=== PATIENT | female | born 1940 | race Caucasian/White ===

== ENCOUNTER 2017-06-18 15:34 | Emergency (ER) | payer MEDICARE, OTHER ==
[~2017-06-18] VITALS: Ht 165.1 cm; Wt 72.6 kg
--- NOTE | 2017-06-18 15:50 | NUR ---
BBRA FAMILY FOR BLE LACERATIONS S/P FALL ON ESCALATOR. DENIES LOC
[2017-06-18] MEDS ORDERED: LIDOCAINE 1%-EPI 1:100,000 50 ML VIAL IJ ONE ×2 (16:37→17:00)
--- NOTE | 2017-06-18 17:46 | NUR ---
Patient discharged to home in stable condition. Written and verbal after care instructions given. Patient verbalizes understanding of instruction.
[2017-06-18 17:49] VITALS: BP 140/83
== END 2017-06-18 17:49 | disposition home or self-care (01) ==
LOC: ER 15:38
DX: S81.811A Laceration without foreign body, right lower leg, initial encounter (principal); S80.812A Abrasion, left lower leg, initial encounter; I10 Essential (primary) hypertension; M19.90 Unspecified osteoarthritis, unspecified site; Z96.641 Presence of right artificial hip joint; Z88.0 Allergy status to penicillin; W10.0XXA Fall (on)(from) escalator, initial encounter; Y93.89 Activity, other specified; Y92.89 Other specified places as the place of occurrence of the external cause; Y99.8 Other external cause status
CPT/HCPCS: 12002; 73590; 99284; A4606; J3490; Z7610

== ENCOUNTER 2017-06-28 15:43 | Emergency (ER) | payer MEDICARE, OTHER ==
[~2017-06-28] VITALS: Ht 167.6 cm; Wt 72.6 kg
[2017-06-28 15:50] VITALS: BP 138/87
== END 2017-06-28 16:33 | disposition home or self-care (01) ==
LOC: ER 15:47
DX: S81.811D Laceration without foreign body, right lower leg, subsequent encounter (principal); I10 Essential (primary) hypertension; M19.90 Unspecified osteoarthritis, unspecified site; Z88.0 Allergy status to penicillin
CPT/HCPCS: 99282; A4606; Z7610

== ENCOUNTER 2018-12-02 15:41 | Emergency (ER) | payer MEDICARE, OTHER ==
[~2018-12-02] VITALS: Ht 154.9 cm; Wt 60.8 kg
[2018-12-02 16:48] VITALS: BP 137/76
[2018-12-02] MEDS ORDERED: ACETAMINOPHEN ES 500 MG TABLET ONE (16:57)
[2018-12-02] MEDS ORDERED: TDAP [DIPH/PERTUSSIS/TET] 0.5 ML VIAL IM ONE ×2 (16:57→17:00)
[2018-12-02] MEDS ORDERED: ACETAMINOPHEN ES 500 MG TABLET PO ONE (17:00)
[2018-12-02] MEDS ORDERED: LIDOCAINE 1%-EPI 1:100,000 20 ML VIAL TP ONE (17:00)
--- NOTE | 2018-12-02 17:00 | NUR ---
PT AMBUALTED TO [facility]1 USING A CANE WITH A STEADY GAIT. PT IS AA&O X4. PT HAS A LAC ON HER LEFT HAND. PT REC'D A T-DAP IM IN THE RT DELTOID.
--- NOTE | 2018-12-02 17:05 | NUR ---
WOUND CARE IN PROGRESS.
[2018-12-02] MEDS ORDERED: LIDOCAINE 1%-EPI 1:100,000 20 ML VIAL ONE (17:16)
--- NOTE | 2018-12-02 17:54 | NUR ---
PT AMBULATED OUT WITH A STEADY GAIT USING A CANE. PT IS TAKING A LYFT HOME.
== END 2018-12-02 17:55 | disposition home or self-care (01) ==
LOC: ER 15:44
DX: S61.412A Laceration without foreign body of left hand, initial encounter (principal); Z88.0 Allergy status to penicillin; W55.03XA Scratched by cat, initial encounter; Y93.89 Activity, other specified; Y92.89 Other specified places as the place of occurrence of the external cause; Y99.8 Other external cause status
CPT/HCPCS: 90471; 90715; 99283; A6403; J3490

== ENCOUNTER 2021-09-04 20:36 | Inpatient (IN) | payer MEDICARE, OTHER ==
[~2021-09-04] VITALS: Ht 162.6 cm; Wt 67.6 kg
--- NOTE | 2021-09-04 20:46 | NUR ---
BIBRA 102 FROM HOME C/O AMS PAST FEW HOURS PT TESTED COVID + X 4 DAYS V/S CHECKED AND RECORDED HOOKED TO MONITOR SPOX PT IS A/O X2 A LITTLE AGITATED, NO SOB NOTED SPO2 98% ON ROOM AIR WILL CONT TO MONITOR
[2021-09-04] MEDS ORDERED: IV NS 0.9% 1,000 ML BAG IV ONE (21:00)
--- NOTE | 2021-09-04 21:05 | NUR ---
PT ON CT
[2021-09-04] MEDS ORDERED: LEVO75TA7 PO (21:10)
[2021-09-04] MEDS ORDERED: AMLO-213 PO (21:10)
[2021-09-04] MEDS ORDERED: LOSA100T31 PO (21:10)
[2021-09-04] MEDS ORDERED: ALEN70TA80 PO (21:10)
[2021-09-04] MEDS ORDERED: ATOR40TA PO (21:10)
[2021-09-04] MEDS ORDERED: DULO30CA2 PO (21:10)
[2021-09-04] MEDS ORDERED: QUET50TA PO (21:10)
[2021-09-04 21:17] LABS: BASOPHILS % (AUTO) 0.3 % (0.0-2.0); EOSINOPHILS % (AUTO) 0.1 % (0.0-6.0); HEMATOCRIT 36 % (33-45); HEMOGLOBIN 12.2 g/dL (11.5-14.8); LYMPHOCYTES # (AUTO) 1.4 K/uL (0.8-4.8); LYMPHOCYTES % (AUTO) 15.2 % (20.0-44.0); MEAN CORPUSCULAR HGB CONC 34 g/dl (31.0-36.0); MEAN CORPUSCULAR VOLUME 85 fL (82-100); MONOCYTES # (AUTO) 0.7 K/uL (0.1-1.30); MONOCYTES % (AUTO) 7.6 % (2.0-12.0); NEUTROPHILS # (AUTO) 6.8 K/uL (1.8-8.9); NEUTROPHILS % (AUTO) 76.8 % (43.0-81.0); PLATELET COUNT (AUTO) 244 K/uL (150-450); RED BLOOD CELL COUNT(AUTO) 4.24 MIL/uL (4.0-5.2); WHITE BLOOD COUNT (AUTO) 8.9 K/uL (4.3-11.0)
[2021-09-04 21:30] LABS: CALCIUM, SERUM 8.5 mg/dL (8.5-10.1); CARBON DIOXIDE 23 mmol/L (21-32); CHLORIDE 81 mmol/L (98-107); CREATININE 0.8 mg/dL (0.6-1.3); GLUCOSE 172 mg/dL (74-106); POTASSIUM 2.9 mmol/L (3.5-5.1); SERUM AMMONIA 9 umol/L (11-32); UREA NITROGEN, BLOOD 11 mg/dL (7-18)
[2021-09-04 21:36] LABS: SODIUM SERUM 116 mmol/L (136-145)
[2021-09-04 21:40] LABS: ALANINE AMINOTRANSFERASE 24 U/L (12-78); ALBUMIN 3.9 g/dL (3.4-5.0); ALKALINE PHOSPHATASE 90 U/L (46-116); ASPARTATE AMINOTRANSFERASE 24 U/L (15-37); BILIRUBIN,DIRECT 0.4 mg/dL (0.0-0.2); BILIRUBIN,TOTAL 1.2 mg/dL (0.2-1.0); TOTAL PROTEIN, SERUM 7.3 g/dL (6.4-8.2)
[2021-09-04 21:41] LABS: ALCOHOL, BLOOD < 3 mg/dL (0-0)
[2021-09-04] MEDS ORDERED: POTASSIUM CHLORIDE 20 MEQ TAB.PRT.SR PO ONE ×2 (22:30→22:38)
--- NOTE | 2021-09-04 22:57 | NUR ---
RFA #20g s/l; patent and intact
[2021-09-04] MEDS ORDERED: POTASSIUM CL. PREMIX PERIPHER. 50 ML ONE (22:59)
[2021-09-04] MEDS ORDERED: POTASSIUM CHLORIDE 10 MEQ/50 ML PREMIXED IVPB FOR PERIPHERAL LINE IV ONE (23:00)
--- NOTE | 2021-09-04 23:20 | NUR ---
HOSPITALIST MICHELLE NICHOLS BUSINESS ETHICS PROFESSOR AT BEDSIDE
[2021-09-04] MEDS ORDERED: ACETAMINOPHEN 325 MG TABLET PO PRN (23:30)
[2021-09-04] MEDS ORDERED: IV Sodium Chloride 3% 500 ML 500 ML IV ONE (23:30)
[2021-09-04] MEDS ORDERED: ONDANSETRON HCL/PF 4 MG/2 ML VIAL IVP PRN (23:30)
[2021-09-04] MEDS: NS 0.9% IV PRN (23:30)
[2021-09-04 23:45] LABS: BILIRUBIN,URINE NEGATIVE (NEGATIVE); COLOR,URINE YELLOW (YELLOW); LEUKOCYTE ESTERASE ,URINE NEGATIVE (NEGATIVE); NITRITE, URINE NEGATIVE (NEGATIVE); PH,URINE 6.5 (5.0-8.0); PROTEIN,URINE NEGATIVE (NEGATIVE); UGLUCOSE 100 MG/DL mg/dL (NEGATIVE); UROBILINOGEN,URINE 0.2 EU/dL (0.2)
[2021-09-04] MEDS ORDERED: ENOXAPARIN SODIUM 40 MG/0.4 ML DISP.SYRIN SQ SCH (23:48)
[2021-09-05] VITALS (16 sets, daily range): BP systolic 103–131; BP diastolic 41–68
--- NOTE | 2021-09-05 00:04 | NUR ---
UPDATED SON ENRIQUE [phone]
[2021-09-05 00:07] LABS: BACTERIA,URINE None seen /HPF (None Seen); RBC,URINE 0-2 /HPF (0-2); SQUAMOUS EPITHELIAL CELL,UR Few /HPF (None Seen); WBC,URINE 0-2 /HPF (0-3)
--- NOTE | 2021-09-05 00:10 | NUR ---
INSERTED F/C 16FR WITH YELLOW URINE OUTPUT; PATENT AND INTACT.
[2021-09-05] MEDS ORDERED: ENOXAPARIN SODIUM 40 MG/0.4 ML DISP.SYRIN SQ ONE (00:18)
--- NOTE | 2021-09-05 00:35 | NUR ---
LFA #18G S/L; PATENT AND INTACT
--- NOTE | 2021-09-05 00:39 | NUR ---
Kelsy melgoza in [place] - 09/05/21 at 0040 by MARY PT COVID ANTIGEN (+); NOTIFIED MARIAM KOHLI
--- NOTE | 2021-09-05 00:40 | NUR ---
PT COVID ANTIGEN (+); NOTIFIED TAMANNA KOHLI
[2021-09-05 02:11] LABS: CALCIUM, SERUM 7.8 mg/dL (8.5-10.1); CREATININE 0.7 mg/dL (0.6-1.3)
--- NOTE | 2021-09-05 04:53 | NUR ---
EMPTY LUU CATHETER WITH URINE OUTPUT OF 1800 ML
[2021-09-05] MEDS ORDERED: ONDANSETRON HCL/PF 4 MG/2 ML VIAL ONE (04:58)
[2021-09-05 05:07] LABS: BASOPHILS # (AUTO) 0.1 K/uL (0.0-0.2); BASOPHILS % (AUTO) 0.4 % (0.0-2.0); HEMATOCRIT 34 % (33-45); HEMOGLOBIN 11.4 g/dL (11.5-14.8); LYMPHOCYTES # (AUTO) 1.1 K/uL (0.8-4.8); LYMPHOCYTES % (AUTO) 8.8 % (20.0-44.0); MEAN CORPUSCULAR HGB CONC 34 g/dl (31.0-36.0); MEAN CORPUSCULAR VOLUME 84 fL (82-100); MONOCYTES # (AUTO) 0.9 K/uL (0.1-1.30); MONOCYTES % (AUTO) 6.9 % (2.0-12.0); NEUTROPHILS # (AUTO) 10.5 K/uL (1.8-8.9); NEUTROPHILS % (AUTO) 83.9 % (43.0-81.0); PLATELET COUNT (AUTO) 240 K/uL (150-450); RED BLOOD CELL COUNT(AUTO) 3.97 MIL/uL (4.0-5.2); WHITE BLOOD COUNT (AUTO) 12.5 K/uL (4.3-11.0)
[2021-09-05 05:22] LABS: CALCIUM, SERUM 7.8 mg/dL (8.5-10.1); CREATININE 0.7 mg/dL (0.6-1.3); MAGNESIUM 1.6 mg/dL (1.8-2.4); PHOSPHORUS 2.8 mg/dL (2.5-4.9)
--- NOTE | 2021-09-05 05:39 | NUR ---
REPORTED TO HOSPITALIST MICHELLE NICHOLS LEDGER CLERK THAT SODIUM LVL IS 117 WITH ORDER TO INCREASE THE RATE OF IVF 3% SODIUM CHLORIDE TO 25ML/HR NOTED AND CARRIED OUT
[2021-09-05] MEDS ORDERED: PANTOPRAZOLE 40 MG VIAL ONE (05:58)
[2021-09-05] MEDS ORDERED: IV Sodium Chloride 3% 500 ML 500 ML IV ONE (06:00)
[2021-09-05] MEDS: PANTOPRAZOLE 40 MG VIAL IV SCH ×3 (06:02→20:26)
--- NOTE | 2021-09-05 06:54 | NUR ---
ICU 256
[2021-09-05] MEDS ORDERED: LEVOTHYROXINE SODIUM 75 MCG TABLET PO SCH (07:00)
[2021-09-05] MEDS: LEVOTHYROXINE SODIUM 75 MCG TABLET PO SCH (07:36)
[2021-09-05] MEDS ORDERED: LEVOTHYROXINE SODIUM 25 MCG TABLET ONE (07:49)
[2021-09-05] MEDS ORDERED: LEVOTHYROXINE SODIUM 50 MCG TABLET ONE (07:49)
--- NOTE | 2021-09-05 08:03 | NUR ---
REPORT GIVEN TO GUY FOR CRISTAL
--- NOTE | 2021-09-05 08:41 | NUR ---
TRANSPORTED PATIENT TO ROOM USING ACLS PROTOCOL
[2021-09-05] MEDS: AMLODIPINE BESYLATE 10 MG TABLET PO SCH (09:18)
[2021-09-05] MEDS: LOSARTAN POTASSIUM 50 MG TABLET PO SCH (09:18)
[2021-09-05] MEDS: ATORVASTATIN 40 MG TABLET PO SCH (09:18)
[2021-09-05] MEDS: POTASSIUM CHLORIDE 20 MEQ TAB.PRT.SR PO SCH ×2 (09:23→10:31)
[2021-09-05] MEDS: Magnesium 1GM/D5W 100ML PREMIX 100 ML IV SCH ×2 (09:23→10:31)
[2021-09-05 12:16] LABS: CREATININE 0.6 mg/dL (0.6-1.3); POTASSIUM 3.4 mmol/L (3.5-5.1)
--- NOTE | 2021-09-05 18:42 | NUR ---
RN NOTES; PT IN BED IN SUPINE POS RESTING. PT A/OX3, NO SOB OR DISTRESS NOTED, NO C/O PAIN AT THIS TIME. PT ON RA, SATING AT 94-98*. LFA PATENT RUNNING 3% NS 500 @25ML/HR. WAITING FOR BMP RESULTS. PER DR. MCKEON IF NA >25 D/C 3% NS 500 AND CHANGE TO NS 1000 @ 75ML/HR. WILL ENDORSE TO SENIOR DATA DEVELOPER RN. ALL MEDICATIONS GIVEN AND TOLERATED WELL. PT KEPT CLEAN, DRY AND COMFORTABLE. ALL SAFETY MEASURES RENDERED, BED LOCKED, IN LOWEST POS. SIDE RAILSX3 WITH CALL LIGHT WITHIN REACH. NO SIGNIFICANT CHANGES TO PT HEALTH STATUS DURING SHIFT. WILL ENDORSE TO SENIOR DATA DEVELOPER RN. PT IN STABLE CONDITION.
--- NOTE | 2021-09-05 19:10 | NUR ---
RN NOTE RECEIVED PATIENT IN BED, AO X 4, IN NO S/SX OF ACUTE DISTRESS AT THIS TIME. BREATHING EVEN AND UNLABORED, SATURATION AT 96% ON ROOM AIR, SR ON THE MONITOR, HR IS 75. NOTED IV SITE AT LFA 18G, PATENT AND FLUSHING WELL, NO S/S OF INFECTION OR INFILTRATION WITH 3% NS INFUSING AT 25 ML/HR. LUU CATHETER IN PLACE, DRAINING TO A CLEAR, YELLOW OUTPUT. SAFETY MEASURES IMPLEMENTED. PATIENT BED ALARM IS ON. HEAD OF BED ELEVATED. BED IS LOCKED, IN LOWEST POSITION AND SIDE RAILS UP. CALL LIGHT WITHIN REACH OF THE PATIENT. WILL CONTINUE TO MONITOR AND REASSESS FOR ANY CHANGES.
[2021-09-05 19:15] LABS: CALCIUM, SERUM 8.5 mg/dL (8.5-10.1); CREATININE 0.7 mg/dL (0.6-1.3); POTASSIUM 3.5 mmol/L (3.5-5.1)
[2021-09-05] MEDS: NS 0.9% IV PRN ×2 (19:23→19:45)
--- NOTE | 2021-09-05 19:40 | NUR ---
RN NOTE NOTED LATEST SODIUM LEVEL AT 1796=727 mmol/L, DR NICHOLS WAS NOTIFIED, ORDER RECEIVED TO DC 3% NaCl, AND CHANGE IV FLUID TO NS AT 75 ML/HR. DIRECTOR OPERATIONSBECKY DE LEON
[2021-09-06] VITALS (15 sets, daily range): BP systolic 107–141; BP diastolic 54–72
[2021-09-06 04:48] LABS: BASOPHILS % (AUTO) 0.1 % (0.0-2.0); EOSINOPHILS % (AUTO) 0.1 % (0.0-6.0); HEMATOCRIT 30 % (33-45); HEMOGLOBIN 10.3 g/dL (11.5-14.8); LYMPHOCYTES # (AUTO) 1.8 K/uL (0.8-4.8); LYMPHOCYTES % (AUTO) 16.1 % (20.0-44.0); MEAN CORPUSCULAR HGB CONC 34 g/dl (31.0-36.0); MEAN CORPUSCULAR VOLUME 86 fL (82-100); MONOCYTES # (AUTO) 1.6 K/uL (0.1-1.30); NEUTROPHILS # (AUTO) 7.8 K/uL (1.8-8.9); NEUTROPHILS % (AUTO) 69.7 % (43.0-81.0); PLATELET COUNT (AUTO) 247 K/uL (150-450); RED BLOOD CELL COUNT(AUTO) 3.52 MIL/uL (4.0-5.2); WHITE BLOOD COUNT (AUTO) 11.2 K/uL (4.3-11.0)
[2021-09-06 04:55] LABS: CARBON DIOXIDE 24 mmol/L (21-32); CHLORIDE 111 mmol/L (98-107); CREATININE 0.7 mg/dL (0.6-1.3); GLUCOSE 115 mg/dL (74-106); MAGNESIUM 2.2 mg/dL (1.8-2.4); PHOSPHORUS 2.3 mg/dL (2.5-4.9); POTASSIUM 3.5 mmol/L (3.5-5.1); SODIUM SERUM 143 mmol/L (136-145); UREA NITROGEN, BLOOD 17 mg/dL (7-18)
[2021-09-06] MEDS ORDERED: IV D5W 500 ML IV ONE (06:30)
--- NOTE | 2021-09-06 07:25 | NUR ---
RN NOTE REPORT GIVEN TO ARIES RN FOR CONTINUATION OF CARE
[2021-09-06] MEDS ORDERED: POTASSIUM PHOSPHATE MM 15 MMOL in IV NS 0.9% 250 ML IV SCH (07:30)
--- NOTE | 2021-09-06 07:30 | NUR ---
MACHINE SPLITTER OPENING NOTES Patient is alert and oriented. Breathing even and unlabored on room air. HOB kept elevated. Gaffney cath intact and hanging to gravity with clear yellow urine. Will continue to monitor. On precautions for covid.
[2021-09-06] MEDS: POTASSIUM PHOSPHATE MM 7.5 MMOL in IV NS 0.9% 100 ML IV SCH ×2 (08:37→11:51)
[2021-09-06] MEDS: AMLODIPINE BESYLATE 10 MG TABLET PO SCH (08:38)
[2021-09-06] MEDS: ATORVASTATIN 40 MG TABLET PO SCH (08:38)
[2021-09-06] MEDS: LOSARTAN POTASSIUM 50 MG TABLET PO SCH (08:38)
[2021-09-06] MEDS: LEVOTHYROXINE SODIUM 75 MCG TABLET PO SCH (08:38)
[2021-09-06] MEDS: PANTOPRAZOLE 40 MG VIAL IV SCH ×2 (08:41→20:46)
--- NOTE | 2021-09-06 11:10 | NUR ---
Patient transferred to AK/2 205. Patient is alert and oriented. Breathing even and unlabored. No c/o pain or discomfort. On room air. Report given to
--- NOTE | 2021-09-06 11:15 | NUR ---
RN NOTES RECEIVED PATIENT FROM ICU VIA BED, PATIENT IS AWAKE, ALERT AND ORIENTED X 4, ABLE TO MAKE NEEDS KNOWN. IV ACCESS ON LFA G#18 NOTED, PATENT AND FLUSHES WELL. ON ROOM AIR TOLERATING WELL, NO S/SX OF ACUTE DISTRESS NOTED. WITH FC CONNECTED TO URINE BAG DRAINING CLEAR YELLOW COLORED URINE. SAFETY PRECAUTIONS IN PLACE, BED ON LOWEST LOCKED POSITION, SIDE RAILS UP X 2, CALL LIGHT WITHIN EASY REACH. WILL CONTINUE TO MONITOR ACCORDINGLY.
--- NOTE | 2021-09-06 13:16 | NUR ---
RN NOTES PATIENT HAD AN EPISODE OF BIGEMINY RUN FOR GOOD 2 MINS. CURRENTLY SR WITH NON CONDUCTING PAC'S HR AT 77. NO OTHER SYMPTOMS NOTED. DR. XIE MADE AWARE.
--- NOTE | 2021-09-06 19:00 | NUR ---
RN CLOSING NOTES PATIENT IN BED, AWAKE, ALERT AND ORIENTED X 4, ABLE TO MAKE NEEDS KNOWN. IV ACCESS ON LFA G#18 NOTED, PATENT AND FLUSHES WELL. ON ROOM AIR TOLERATING WELL, NO S/SX OF ACUTE DISTRESS NOTED. WITH FC CONNECTED TO URINE BAG DRAINING CLEAR YELLOW COLORED URINE. SAFETY PRECAUTIONS IN PLACE, BED ON LOWEST LOCKED POSITION, SIDE RAILS UP X 2, CALL LIGHT WITHIN EASY REACH. ALL NEEDS ATTENDED AN DMET, DUE MEDS GIVEN ORDERED. WILL ENDORSE TO ONCOMING SHIFT FOR CRISTAL.
--- NOTE | 2021-09-06 19:45 | NUR ---
TRUST MANAGER ASSISTANT NOTES RECEIVED ON BED A/O X4,BREATHING NON LABORED,SALINE LFA INTACT AND PATENT,DROPLET ISOLATION DUE COVID RAPID POSITIVE.ABLE TO VERNALIZED NEEDS,CALL LIGHT IN REACH,NEEDS ANTICIPATED.
--- NOTE | 2021-09-06 19:45 | NUR ---
DRIVER STARTING GATE NOTES LUU CATH IN PLACE DRAINING CLEAR YELLOW URINE OUTPUT.
[2021-09-07] VITALS: BP 134/64
[2021-09-07 04:00] VITALS: BP 130/61
--- NOTE | 2021-09-07 06:34 | NUR ---
SWITCH MAKER NOTES SLEPT WITH INTERVAL, ALL DUE MEDS GIVEN,NO COMPLAINTS THRU SHIFT,CALL LIGHT IN REACH,NEEDS ATTENDED.
--- NOTE | 2021-09-07 07:30 | NUR ---
MOUNTER CLARINETS OPENING NOTES RECEIVED PATIENT ON BED AWAKE AND A/O X4. ON ROOM AIR TOLERATING WELL. NO SOB NOTED. NOT IN DISTRESS. ON DROPLET PRECAUTION DUE TO PATIENT IS COVID POSITIVE. WITH NO COMPLAINTS OF PAIN OR DISCOMFORT AT THIS TIME. WITH IV ACCESS AT LEFT FOREARM G18, SALINE LOCKED, PATENT AND INTACT. SAFETY MEASURES IN PLACED. CALL LIGHT WITHIN REACH. BED ON LOWEST LOCKED POSITION, SIDE RAILS UP X2. WILL CONTINUE TO MONITOR.
--- NOTE | 2021-09-07 07:30 | NUR ---
RN NOTE ON TELE MONITOR CURRENTLY READING SINUS RHYTHM AT 64BPM.
[2021-09-07 08:00] VITALS: BP 136/76
[2021-09-07 08:25] LABS: BASOPHILS % (AUTO) 0.5 % (0.0-2.0); EOSINOPHILS % (AUTO) 1.5 % (0.0-6.0); HEMATOCRIT 32 % (33-45); HEMOGLOBIN 11.1 g/dL (11.5-14.8); LYMPHOCYTES # (AUTO) 1.9 K/uL (0.8-4.8); MEAN CORPUSCULAR HGB CONC 34 g/dl (31.0-36.0); MEAN CORPUSCULAR VOLUME 86 fL (82-100); MONOCYTES % (AUTO) 12.1 % (2.0-12.0); NEUTROPHILS # (AUTO) 5.3 K/uL (1.8-8.9); NEUTROPHILS % (AUTO) 62.9 % (43.0-81.0); PLATELET COUNT (AUTO) 246 K/uL (150-450); RED BLOOD CELL COUNT(AUTO) 3.74 MIL/uL (4.0-5.2); WHITE BLOOD COUNT (AUTO) 8.4 K/uL (4.3-11.0)
[2021-09-07 08:43] LABS: CALCIUM, SERUM 7.9 mg/dL (8.5-10.1); CREATININE 0.6 mg/dL (0.6-1.3); PHOSPHORUS 2.4 mg/dL (2.5-4.9)
[2021-09-07] MEDS: LEVOTHYROXINE SODIUM 75 MCG TABLET PO SCH (09:44)
[2021-09-07] MEDS: LOSARTAN POTASSIUM 50 MG TABLET PO SCH (09:44)
[2021-09-07] MEDS: ATORVASTATIN 40 MG TABLET PO SCH (09:44)
[2021-09-07] MEDS: AMLODIPINE BESYLATE 10 MG TABLET PO SCH (09:44)
[2021-09-07] MEDS: PANTOPRAZOLE 40 MG VIAL IV SCH (09:45)
[2021-09-07 12:00] VITALS: BP 123/65
[2021-09-07] MEDS: POTASSIUM CHLORIDE 20 MEQ TAB.PRT.SR PO SCH ×3 (12:53→15:01)
[2021-09-07] MEDS ORDERED: NEUTRA PHOS 1 POWD.PACKET PO ONE (13:00)
--- NOTE | 2021-09-07 16:50 | NUR ---
FUEL CELL SYSTEMS ENGINEER CLOSING NOTES PATIENT WAS SEEN BY DR. XIE AND ORDERED PATIENT FOR DISCHARGE TO HOME. DISCHARGE INSTRUCTION AND EDUCATION PROVIDED TO PATIENT AND EXPLAINED MEDICATIONS AND PRESCRIPTIONS. PATIENT VERBALIZED UNDERSTANDING. DISCHARGE FORM AND BELONGINGS LIST FORM SIGNED BY PATIENT. ALL BELONGINGS ACCOUNTED FOR. NAME WRIST BAND AND IV LINE REMOVED. ACCOMPANIED PATIENT TO THE LOBBY VIA WHEELCHAIR IN STABLE CONDITION AND WAS PICKED UP BY SON VIA PRIVATE CAR. MD AND CHARGE NURSE ARE AWARE OF THE DISCHARGE.
== END 2021-09-07 16:15 | disposition home or self-care (01) | DRG 177 ==
LOC: ER 20:45 → TRANSITION 23:39 → ICU 09-05 07:18 → TELE2 09-06 11:10
PROVIDERS: ADMIT Nurse Practitioner Acute Care; ATTEND Internal Medicine
DX: U07.1 COVID-19 (principal); G93.41 Metabolic encephalopathy; E87.1 Hypo-osmolality and hyponatremia; R47.01 Aphasia; K92.0 Hematemesis; E86.1 Hypovolemia; I10 Essential (primary) hypertension; Z88.0 Allergy status to penicillin; Z79.83 Long term (current) use of bisphosphonates; Z79.899 Other long term (current) drug therapy; E03.9 Hypothyroidism, unspecified; E11.65 Type 2 diabetes mellitus with hyperglycemia; E78.5 Hyperlipidemia, unspecified; F41.9 Anxiety disorder, unspecified; E83.42 Hypomagnesemia; E87.6 Hypokalemia; M10.9 Gout, unspecified; Z79.890 Hormone replacement therapy; D32.9 Benign neoplasm of meninges, unspecified
CPT/HCPCS: 36415; 70450-TC; 71045-TC; 80048-TC; 80061-TC; 80076-TC; 81001; 82140-TC; 82962-TC; 83735-TC; 84100-TC; 84300-TC; 84443-TC; 84484-TC; 85025-TC; 85730-TC; 87081-TC; 97116-TC; 97530-TC; C9113; G0378; G0480; J1650; J2405; J3475; J3480; J3490; J7030; J7040; J7050; J7060

== ENCOUNTER 2022-07-13 14:22 | Inpatient (IN) | payer MEDICARE, OTHER ==
[~2022-07-13] VITALS: Ht 205.7 cm; Wt 79.8 kg
[~2022-07-13 14:22] MED LIST: ALEN70TA80 PO; AMLO-213 PO; ATOR40TA PO; DULO30CA2 PO; LEVO75TA7 PO; LOSA100T31 PO; QUET50TA PO
[2022-07-13] MEDS ORDERED: IV NS 0.9% 1,000 ML BAG IV ONE ×2 (14:30→16:00)
--- NOTE | 2022-07-13 14:41 | NUR ---
COVID TEST COLLECTED AND SENT
--- NOTE | 2022-07-13 14:45 | NUR ---
To ER bed 1, JESSICA TALBERT881 "From Home son noticed was slow to respond since yesterday worse today- inconrinent of urine", aaox3, breathing even and non labored, connected to monitor, awaiting md sanchez
[2022-07-13] MEDS ORDERED: RISP1TAB97 PO (15:01)
[2022-07-13] MEDS ORDERED: ROSU40TA23 PO (15:01)
[2022-07-13 15:14] LABS: BASOPHILS % (AUTO) 0.3 % (0.0-2.0); EOSINOPHILS % (AUTO) 0.1 % (0.0-6.0); HEMATOCRIT 37 % (33-45); MEAN CORPUSCULAR HGB CONC 33 g/dl (31.0-36.0); MEAN CORPUSCULAR VOLUME 81 fL (82-100); MONOCYTES # (AUTO) 1.8 K/uL (0.1-1.30); MONOCYTES % (AUTO) 13.5 % (2.0-12.0); NEUTROPHILS # (AUTO) 9.3 K/uL (1.8-8.9); NEUTROPHILS % (AUTO) 71.1 % (43.0-81.0); PLATELET COUNT (AUTO) 295 K/uL (150-450); RED BLOOD CELL COUNT(AUTO) 4.55 MIL/uL (4.0-5.2); WHITE BLOOD COUNT (AUTO) 13.2 K/uL (4.3-11.0)
[2022-07-13 15:22] LABS: CALCIUM, SERUM 9.2 mg/dL (8.5-10.1); CARBON DIOXIDE 26 mmol/L (21-32); CHLORIDE 98 mmol/L (98-107); CREATININE 0.9 mg/dL (0.6-1.3); GLUCOSE 126 mg/dL (74-106); POTASSIUM 4.4 mmol/L (3.5-5.1); SODIUM SERUM 131 mmol/L (136-145); UREA NITROGEN, BLOOD 13 mg/dL (7-18)
[2022-07-13 15:28] LABS: ALANINE AMINOTRANSFERASE 93 U/L (12-78); ALBUMIN 3.4 g/dL (3.4-5.0); ALKALINE PHOSPHATASE 63 U/L (46-116); ASPARTATE AMINOTRANSFERASE 287 U/L (15-37); BILIRUBIN,DIRECT 0.1 mg/dL (0.0-0.2); BILIRUBIN,TOTAL 0.5 mg/dL (0.2-1.0); TOTAL PROTEIN, SERUM 6.8 g/dL (6.4-8.2)
[2022-07-13 15:47] LABS: BILIRUBIN,URINE NEGATIVE (NEGATIVE); COLOR,URINE YELLOW (YELLOW); LEUKOCYTE ESTERASE ,URINE 2+ (NEGATIVE); NITRITE, URINE NEGATIVE (NEGATIVE); PH,URINE 6.5 (5.0-8.0); PROTEIN,URINE NEGATIVE (NEGATIVE); UGLUCOSE NEGATIVE (NEGATIVE); UROBILINOGEN,URINE 0.2 EU/dL (0.2)
[2022-07-13] MEDS ORDERED: VANCOMYCIN 1 GM in IV D5W 250 ML IV ONE (16:00)
[2022-07-13] MEDS ORDERED: CEFEPIME 1 GM in IV D5W 50 ML IV ONE (16:00)
[2022-07-13 16:01] LABS: BACTERIA,URINE 2+ /HPF (None Seen); RBC,URINE 21-50 /HPF (0-2); URINE AMORPHOUS URATE Many /HPF (None Seen)
--- NOTE | 2022-07-13 20:08 | NUR ---
RECEIVED PT IS ER ROOM 1. PT IS ALERT AND DENIES ANY DISCOMFORT AT THIS TIME. CONNECTED TO POX AND HEART MONITOR. VITAL SIGNS WITHIN LIMITS. FAMILY AT BEDSIDE. WILL CONTINUE TO MONITOR
--- NOTE | 2022-07-13 20:56 | NUR ---
TELE 312-2
--- NOTE | 2022-07-13 21:06 | NUR ---
report given to Cecilia PENA to continue care.
[2022-07-13 21:53] VITALS: BP 106/55
--- NOTE | 2022-07-13 21:58 | NUR ---
PATIENT TRANSFERRED TO [facility]
[2022-07-13] MEDS ORDERED: Z GUARD REMEDY 4 OZ OINT TP PRN (22:00)
[2022-07-13] MEDS ORDERED: ACETAMINOPHEN 325 MG TABLET PO PRN (22:00)
[2022-07-13] MEDS ORDERED: ONDANSETRON HCL/PF 4 MG/2 ML VIAL IVP PRN (22:00)
[2022-07-13] MEDS ORDERED: ENOXAPARIN SODIUM 80 MG/0.8 ML DISP.SYRIN SQ ONE (22:30)
--- NOTE | 2022-07-13 22:30 | NUR ---
MEDICAL SUPPLY TECHNICIANEDUCATION SPECIALIST NOTE PATIENT ARRIVED FROM ER, PATIENT ALERT/ORIENTED TO NAME AND PLACE, ORIENTED PATIENT TO DATE AND TIME. PATIENT STABLE ON RA, NO S/S OF DISTRESS OR SOB NOTED, BREATHING EVEN AND UNLABORED. EXTERNAL RIVETING MACHINE OPERATOR PLACED ON PATIENT, READING SINUS RHYTHM, HR: 63. IV ACCESS ON RAC #20G INTACT AND FLUSHING WELL. PATIENT FULLY VACCINATED FOR COVID WITH BOOSTERS X 3, VACCINATED FOR FLU IN MAY, UNSURE IF RECEIVED PNA VACCINE. PATIENT STATES SHE LIVES WITH SON, USES WALKER FOR AMBULATION BUT HASN'T BEEN ABLE TO WALK RECENTLY D/T WEAKNESS, PT EVAL ORDERED. WOUND CONSULT ORDERED FOR RIGHT ARM SKIN TEARS, PT ALSO HAS LEFT ARM BRUISING AND RIGHT LEG SCAB. PATIENT HAS BILATERAL LOWER EXTREMITY PITTING EDEMA +3. PATIENT BELONGINGS DOCUMENTED, PATIENT REQUESTED TO PUT ANTONIO ($117) AND DEBIT IN [facility]. PATIENT STATES SHE IS VEGAN. ORIENTED PATIENT TO ROOM AND HOW TO USE CALL LIGHT. SAFETY MEASURES IN PLACE: CALL LIGHT WITHIN REACH, SIDE RAILS UP X 2, BED LOCKED IN LOWEST POSITIONS, BED ALARM ON. WILL CONTINUE TO MONITOR PATIENT
[2022-07-13] MEDS ORDERED: CEFTRIAXONE 1 G VIAL ONE (23:17)
[2022-07-13] MEDS: CEFTRIAXONE 1 G in IV D5W 50 ML IV SCH (23:21)
[2022-07-13] MEDS: ATORVASTATIN 40 MG TABLET PO SCH (23:22)
[2022-07-13] MEDS: PANTOPRAZOLE 40 MG TABLET.DR PO SCH (23:22)
[2022-07-13] MEDS: risperiDONE 1 MG TABLET PO SCH (23:22)
[2022-07-13] MEDS: IV NS 0.9% 1,000 ML IV PRN (23:22)
[2022-07-14] VITALS: BP 109/61
[2022-07-14] MEDS ORDERED: ASPIRIN 81 MG TAB.CHEW PO STA (00:03)
[2022-07-14 05:00] VITALS: BP 106/57
[2022-07-14 06:19] LABS: BASOPHILS # (AUTO) 0.1 K/uL (0.0-0.2); BASOPHILS % (AUTO) 0.7 % (0.0-2.0); EOSINOPHILS % (AUTO) 1.9 % (0.0-6.0); HEMATOCRIT 32 % (33-45); HEMOGLOBIN 10.7 g/dL (11.5-14.8); LYMPHOCYTES # (AUTO) 2.4 K/uL (0.8-4.8); LYMPHOCYTES % (AUTO) 31.8 % (20.0-44.0); MEAN CORPUSCULAR HGB CONC 34 g/dl (31.0-36.0); MEAN CORPUSCULAR VOLUME 82 fL (82-100); MONOCYTES % (AUTO) 13.4 % (2.0-12.0); NEUTROPHILS % (AUTO) 52.2 % (43.0-81.0); PLATELET COUNT (AUTO) 260 K/uL (150-450); RED BLOOD CELL COUNT(AUTO) 3.92 MIL/uL (4.0-5.2); WHITE BLOOD COUNT (AUTO) 7.7 K/uL (4.3-11.0)
[2022-07-14 06:32] LABS: CALCIUM, SERUM 8.1 mg/dL (8.5-10.1); CARBON DIOXIDE 25 mmol/L (21-32); CHLORIDE 109 mmol/L (98-107); CREATININE 0.5 mg/dL (0.6-1.3); GLUCOSE 79 mg/dL (74-106); MAGNESIUM 2.2 mg/dL (1.8-2.4); PHOSPHORUS 3.2 mg/dL (2.5-4.9); POTASSIUM 3.8 mmol/L (3.5-5.1); SODIUM SERUM 140 mmol/L (136-145); UREA NITROGEN, BLOOD 8 mg/dL (7-18)
--- NOTE | 2022-07-14 07:03 | NUR ---
TORQUE TESTER CLOSING NOTE PATIENT AWAKE IN BED, ALERT/ORIENTED X 2-3. PT STABLE ON RA, NO S/S OF DISTRESS OR SOB NOTED, BREATHING EVEN AND UNLABORED. PATIENT ON EXTERNAL WEB OFFSET PRESS FEEDER READING SINUS ANTONIO TO SINUS RHYTHM, HR: 64 AT THIS TIME. PATIENT DENIED CHEST PAIN ALL SHIFT. IV ACCESS ON RAC #20G INTACT AND INFUSING NS @ 75 ML/HR. MEDICATIONS GIVEN ORDERED, PT NEEDS MET THROUGHOUT SHIFT. PATIENT'S ANTONIO AND DEBIT CARD TAKEN DOWN TO NURSING COTTRELL OPERATOR [facility] PER PATIENT REQUEST. SAFETY MEASURES IN PLACE: CALL LIGHT WITHIN REACH, SIDE RAILS UP X 2, BED LOCKED IN LOWEST POSITION, BED ALARM ON. WILL ENDORSE TO DAYSHIFT NURSE FOR CONTINUITY OF CARE
[2022-07-14 07:13] LABS: CHOLESTEROL 91 mg/dL (<200); HDL CHOLESTEROL 64 mg/dL (40-60); LDL 20 mg/dL (0-99); TRIGLYCERIDES 34 mg/dL (30-150)
--- NOTE | 2022-07-14 07:30 | NUR ---
TELE OPENING NOTES RECEIVED PATIENT AWAKE IN BED. PATIENT IS ALERT AND ORIENTED TIMES 3. NO PAIN NOTED. NO SOB NOTED. NO DISTRESS NOTED. IV ACCESS ON THE RIGHT ARM G # 20 INTACT RUNNING NS AT 75 ML/HR. ON TELE MONITOR READING SR. ALL NEEDS ATTENDED. ALL SAFETY MEASURES IN PLACE. BED LOCKED IN THE LOWEST POSITION. CALL LIGHT AND TABLE IN EASY REACH. WILL CONTINUE TO MONITOR.
[2022-07-14] MEDS: PANTOPRAZOLE 40 MG TABLET.DR PO SCH (07:55)
[2022-07-14] MEDS: LEVOTHYROXINE SODIUM 75 MCG TABLET PO SCH (07:55)
[2022-07-14 08:00] VITALS: BP 101/47
[2022-07-14] MEDS: AMLODIPINE BESYLATE 10 MG TABLET PO SCH (09:00)
[2022-07-14] MEDS: LOSARTAN POTASSIUM 50 MG TABLET PO SCH (09:00)
[2022-07-14] MEDS: DULOXETINE HCL 30 MG CAPSULE.DR PO SCH (09:54)
[2022-07-14] MEDS: ASPIRIN EC 81 MG TABLET.DR PO SCH (09:55)
[2022-07-14] MEDS: ENOXAPARIN SODIUM 80 MG/0.8 ML DISP.SYRIN SQ SCH ×2 (10:06→21:06)
[2022-07-14 12:00] VITALS: BP 106/58
--- NOTE | 2022-07-14 12:00 | NUR ---
RN NOTES. THE BELONGING OF ANTONIO 117 $ AND DEBIT CARD IS TAKEN HOME BY SON ENRIQUE. ENRIQUE SIGNED THE BELONGINGS PAPER FOR THOSE 2 ITEMS . I GOT THE MONEY AND DEBIT CARD FROM [employer] FROM [employer].
[2022-07-14 16:00] VITALS: BP 106/63
--- NOTE | 2022-07-14 19:00 | NUR ---
RN CLOSING NOTES PATIENT AWAKE IN BED. PATIENT IS ALERT AND ORIENTED TIMES 3. NO PAIN NOTED. NO SOB NOTED. NO DISTRESS NOTED. IV ACCESS ON THE RIGHT ARM G # 20 INTACT RUNNING NS AT 75 ML/HR. DUE MEDS GIVEN ORDERED.ON TELE MONITOR READING SR. ALL NEEDS ATTENDED. ALL SAFETY MEASURES IN PLACE. BED LOCKED IN THE LOWEST POSITION. CALL LIGHT AND TABLE IN EASY REACH. WILL ENDORSE FOR CRISTAL.
--- NOTE | 2022-07-14 19:42 | NUR ---
noc rn opening note received patient in bed a/ox3-4. no s/s of apparent distress on room air. denies any pain. tele monitor reading sr with 71 bpm. r. ac #20g running ns @75mls/hr. re-oriented and encouraged with the use of call light, call light within reach. safety in place. will continue with plan of care for patient.
[2022-07-14 20:00] VITALS: BP 121/68
[2022-07-14] MEDS: risperiDONE 1 MG TABLET PO SCH (21:23)
[2022-07-14] MEDS: ATORVASTATIN 40 MG TABLET PO SCH (21:23)
[2022-07-14] MEDS: CEFTRIAXONE 1 G in IV D5W 50 ML IV SCH (21:28)
[2022-07-15] VITALS: BP 111/60
[2022-07-15] MEDS: IV NS 0.9% 1,000 ML IV PRN (01:21)
[2022-07-15 04:00] VITALS: BP 125/58
[2022-07-15] MEDS: LEVOTHYROXINE SODIUM 75 MCG TABLET PO SCH (07:07)
[2022-07-15] MEDS: PANTOPRAZOLE 40 MG TABLET.DR PO SCH (07:07)
--- NOTE | 2022-07-15 07:30 | NUR ---
MULTIPLE SCLEROSIS NURSE NOTES PT IN BED, AWAKE, ALERT AND ORIENTED, DENIES PAIN, RESPIRATIONS NORMAL, CALL LIGHT WITHIN REACH, IV FLUIDS INFUSING WELL, NEEDS ATTENDED.
--- NOTE | 2022-07-15 07:37 | NUR ---
noc rn closing needs attended. report given to jeffery Benjamin for continuity of patient care.
[2022-07-15 08:00] VITALS: BP 124/63
[2022-07-15] MEDS: ASPIRIN EC 81 MG TABLET.DR PO SCH (09:08)
[2022-07-15] MEDS: DULOXETINE HCL 30 MG CAPSULE.DR PO SCH (09:10)
[2022-07-15] MEDS: AMLODIPINE BESYLATE 10 MG TABLET PO SCH (09:10)
[2022-07-15] MEDS: LOSARTAN POTASSIUM 50 MG TABLET PO SCH (09:10)
[2022-07-15] MEDS: ENOXAPARIN SODIUM 80 MG/0.8 ML DISP.SYRIN SQ SCH ×2 (09:30→21:35)
[2022-07-15 12:22] VITALS: BP 118/71
--- NOTE | 2022-07-15 12:46 | NUR ---
WOUND CARE CONSULT: PT DENIES NEED FOR FULL SKIN ASSESSMENT. RT ARM SKIN TEARS NOTED AND CONCUR WITH CURRENT TREATMENT. DISCUSSED SKIN PROTECTION WITH NURSING STAFF. MD IN AGREEMENT WITH PLAN OF CARE.
[2022-07-15 13:34] LABS: ALBUMIN 2.5 g/dL (3.4-5.0); BILIRUBIN,DIRECT 0.1 mg/dL (0.0-0.2); BILIRUBIN,TOTAL 0.4 mg/dL (0.2-1.0); TOTAL PROTEIN, SERUM 5.5 g/dL (6.4-8.2)
[2022-07-15 16:00] VITALS: BP 108/51
--- NOTE | 2022-07-15 18:28 | NUR ---
BUTTON AND BUCKLE MAKER NOTES PT IN BED, AWAKE, ALERT AND ORIENTED, WATCHING TV, NO COMPLAINT OF PAIN OR ANY DISCOMFORT, CALL LIGHT WITHIN REACH, IV FLUIDS INFUSING WELL, PLAN OF CARE DISCUSSED WITH PT, VERBALIZED UNDERSTANDING.
--- NOTE | 2022-07-15 19:30 | NUR ---
noc rn opening note received patient in bed a/ox4. no s/s of apparent distress on room air. 1 family member at bedside. denies any pain. tele monitor reading sr with 69 bpm. r. ac #20g running ns @75mls/hr. re-oriented and encouraged with the use of call light, call light within reach. safety in place. will continue with plan of care for patient.
[2022-07-15 20:00] VITALS: BP_SYST 108; BP_SYST 128; BP_DIAS 64; BP_DIAS 70
[2022-07-15] MEDS: ATORVASTATIN 40 MG TABLET PO SCH (21:36)
[2022-07-15] MEDS: risperiDONE 1 MG TABLET PO SCH (21:36)
[2022-07-15] MEDS: CEFTRIAXONE 1 G in IV D5W 50 ML IV SCH (22:03)
[2022-07-16] VITALS: BP 112/67
[2022-07-16 04:00] VITALS: BP 111/67
--- NOTE | 2022-07-16 07:18 | NUR ---
WELDER GUN CLOSING NOTES PATIENT IS LYING AWAKE IN BED, ALERT AND ORIENTED X3. NO COMPLAINT OF PAIN OR ANY DISCOMFORT, CALL LIGHT WITHIN REACH, IV FLUIDS INFUSING WELL, PLAN OF CARE DISCUSSED WITH PT, VERBALIZED UNDERSTANDING.
[2022-07-16] MEDS: LEVOTHYROXINE SODIUM 75 MCG TABLET PO SCH (07:23)
[2022-07-16] MEDS: PANTOPRAZOLE 40 MG TABLET.DR PO SCH (07:24)
--- NOTE | 2022-07-16 07:30 | NUR ---
MAILROOM PERSONNEL NOTES PT IN BED, AWAKE, ALERT AND ORIENTED, DENIES PAIN, NOT IN DISTRESS, KEPT ON LOW BED, CALL LIGHT WITHIN REACH, NEEDS ATTENDED.
[2022-07-16 08:00] VITALS: BP 124/67
--- NOTE | 2022-07-16 08:35 | NUR ---
ZINC SKIMMER NOTES PT SEEN AND EXAMINED BY DR. [facility], PLAN OF CARE DISCUSSED WITH PT, VERBALIZED UNDERSTANDING.
[2022-07-16] MEDS: LOSARTAN POTASSIUM 50 MG TABLET PO SCH (09:07)
[2022-07-16] MEDS: ASPIRIN EC 81 MG TABLET.DR PO SCH (09:07)
[2022-07-16] MEDS: DULOXETINE HCL 30 MG CAPSULE.DR PO SCH (09:07)
[2022-07-16] MEDS: AMLODIPINE BESYLATE 10 MG TABLET PO SCH (09:08)
[2022-07-16] MEDS ORDERED: ENOXAPARIN SODIUM 80 MG/0.8 ML DISP.SYRIN SQ SCH (11:00)
[2022-07-16 15:54] VITALS: BP 116/63
--- NOTE | 2022-07-16 18:00 | NUR ---
HEAD ESTHETICIAN NOTES PT IN BED, AWAKE, ALERT AND ORIENTED, DENIES PAIN, NOT IN DISTRESS, SEEN BY DR. [facility], DISCHARGE AND MEDICATION INSTRUCTIONS GIVEN TO PT AND SON AT BEDSIDE, VERBALIZED UNDERSTANDING, BELONGINGS ACCOUNTED FOR, REPORT GIVEN TO TONYA PENA OF [facility], PICKED UP BY 2 AMBULANCE PERSONNEL, LEFT VIA GUERNEY IN STABLE CONDITION.
[2022-07-21] MEDS ORDERED: ALENDRONATE 70 MG TABLET PO SCH (09:00)
== END 2022-07-16 18:10 | DRG 871 ==
LOC: ER 14:24 → TRANSITION 17:18 → TELE 20:59
PROVIDERS: ADMIT Nurse Practitioner Acute Care; ATTEND Internal Medicine
DX: A41.9 Sepsis, unspecified organism (principal); G93.41 Metabolic encephalopathy; I21.4 Non-ST elevation (NSTEMI) myocardial infarction; E87.1 Hypo-osmolality and hyponatremia; N39.0 Urinary tract infection, site not specified; E87.20 Acidosis, unspecified; I10 Essential (primary) hypertension; E03.9 Hypothyroidism, unspecified; E78.5 Hyperlipidemia, unspecified; F32.A Depression, unspecified; I25.10 Atherosclerotic heart disease of native coronary artery without angina pectoris; Z86.16 Personal history of COVID-19; M81.0 Age-related osteoporosis without current pathological fracture; Z88.0 Allergy status to penicillin; Z79.890 Hormone replacement therapy; Z79.899 Other long term (current) drug therapy; Z87.01 Personal history of pneumonia (recurrent); R74.01 Elevation of levels of liver transaminase levels; Z87.440 Personal history of urinary (tract) infections
CPT/HCPCS: 36415; 71045-TC; 76705-TC; 80048-TC; 80061-TC; 80076-TC; 81001; 82962-TC; 83605-TC; 83735-TC; 83880; 84100-TC; 84443-TC; 84484-TC; 85025-TC; 87040-TC; 87081-TC; 87086-TC; 93307-TC; 97112-TC; 97116-TC; 97530-TC; A6253; A6403; C9803; G0378; J0692; J0696; J1650; J3370; J7030; J7040; J7060

== ENCOUNTER 2023-11-26 11:10 | Emergency (ER) | payer MEDICARE, OTHER ==
[~2023-11-26] VITALS: Ht 165.1 cm; Wt 90.7 kg
[~2023-11-26 11:10] MED LIST changes: -ATOR40TA PO; -QUET50TA PO; +RISP1TAB97 PO; +ROSU40TA23 PO
[2023-11-26 11:30] VITALS: BP 137/70; TEMP 97.9; O2SAT 98
[2023-11-26] MEDS ORDERED: BENZOIN COMPOUND TINCT 60 ML BOTTLE ONE (11:50)
[2023-11-26] MEDS ORDERED: AZIT250T13 PO (12:19)
[2023-11-26] MEDS ORDERED: CLIN300C12 PO (12:19)
[2023-11-26] MEDS ORDERED: CLINDAMYCIN HCL 150 MG CAPSULE ONE (12:21)
[2023-11-26] MEDS ORDERED: AZITHROMYCIN 250 MG TABLET ONE (12:21)
[2023-11-26] MEDS: AZITHROMYCIN 250 MG TABLET PO ONE (12:25)
[2023-11-26] MEDS: CLINDAMYCIN HCL 150 MG CAPSULE PO ONE (12:25)
== END 2023-11-26 12:38 | disposition home or self-care (01) ==
LOC: ER 11:15
DX: S81.811A Laceration without foreign body, right lower leg, initial encounter (principal); L03.115 Cellulitis of right lower limb; I10 Essential (primary) hypertension; E78.5 Hyperlipidemia, unspecified; E03.9 Hypothyroidism, unspecified; Z90.710 Acquired absence of both cervix and uterus; Z88.0 Allergy status to penicillin; Z79.899 Other long term (current) drug therapy; W55.03XA Scratched by cat, initial encounter; Y93.89 Activity, other specified; Y92.89 Other specified places as the place of occurrence of the external cause; Y99.8 Other external cause status
CPT/HCPCS: 99283; A6403